=== PATIENT | female | born 2005 ===

== ENCOUNTER 2025-02-25 23:09 | Emergency (ER) | payer SELFPAY ==
[~2025-02-25 23:09] MED LIST: Iopamidol-370 76% 500 ML MDV (1 ML CHARGE) ONE
[2025-02-25 23:57] LABS: #Basophils 0.03 10x3/uL (0.0-0.2); #Eosinophils 0.03 10x3/uL (0.0-0.7); #Monocytes 0.68 10x3/uL (0.11-0.59); #Neutrophils 4.24 10x3/uL (1.40-6.50); %Basophils 0.3 % (0.0-1.0); %Eosinophils 0.3 % (0.0-10.0); %Lymphocytes 44.9 % (21.0-51.0); %Monocytes 7.5 % (0.0-10.0); %Neutrophils 46.9 % (42.0-75.0); Hematocrit 38.4 % (36.0-47.0); Hemoglobin 12.2 g/dL (12.0-16.0); Mean Corpuscular Hemoglobin 25.6 pg (27.0-31.0); Mean Corpuscular Volume 80.5 fL (78.0-98.0); Platelet Count 335 10x3/uL (130-400); Red Blood Cell (RBC) Count 4.77 mill/uL (4.20-5.40); White Blood Cell (WBC) Count 9.06 10x3/uL (4.8-10.8)
[2025-02-26 00:09] LABS: BHCG - Serum Negative (NEGATIVE); Pregs Control Background? CLEAR/WHITE (CLR/WHITE); Pregs Control Bar Appear? YES (CONTROL BAR)
[2025-02-26 00:11] LABS: INR-International Normal Ratio 1.0; PTT 29.8 sec (22.9-36.1); Prothrombin Time 13.6 sec (12.0-14.7)
[2025-02-26 00:27] LABS: Lipase 15 U/L (8-78); Magnesium 2.2 mg/dL (1.6-2.6)
[2025-02-26 00:28] LABS: Acetaminophen Less than 10 mcg/mL (Less than 10); Salicylate Less than 8.0 mg/dL (Less than 8.0)
[2025-02-26 00:29] LABS: ALT (SGPT) 40 U/L (Less than 34); AST (SGOT) 35 U/L (11-34); Albumin 4.3 g/dL (3.1-4.5); Alkaline Phosphatase 108 U/L (40-110); Anion Gap 15 mmol/L (10-20); BUN (Urea Nitrogen) 5 mg/dL (7.0-18.7); Bilirubin, Total 0.2 mg/dL (0.3-1.2); Calc. Creatinine Clearance 0 mL/min (70-130); Calcium 8.5 mg/dL (7.8-10.44); Carbon Dioxide 18 mmol/L (22-29); Chloride 115 mmol/L (98-107); Globulin 2.9 g/dL (2.4-3.5); Glucose 111 mg/dL (70-105); Potassium 4.2 mmol/L (3.5-5.1); Sodium 144 mmol/L (136-145)
[2025-02-26 01:28] LABS: Cocaine Metabolite Screen Negative (Negative); THC/Cannabinoid Screen Negative (Negative); Tricyclic Screen Negative (Negative)
== END 2025-02-26 02:05 ==
LOC: ERS 23:09
DX: S30.11XA Contusion of abdominal wall, initial encounter (principal); F10.129 Alcohol abuse with intoxication, unspecified; Y90.1 Blood alcohol level of 20-39 mg/100 ml; X58.XXXA Exposure to other specified factors, initial encounter
CPT/HCPCS: 51701; 70450; 71260; 72125; 74177; 80053; 80306; 80307; 83690; 83735; 84443; 84484; 84703; 85025; 85610; 85730; 93005; Q9967